=== PATIENT | female | born 1970 | race African-American/Black ===

== ENCOUNTER 2017-12-27 16:30 | Emergency (ER) | payer OTHER ==
[~2017-12-27] VITALS: Ht 157.5 cm; Wt 89.4 kg
[~2017-12-27 16:30] MED LIST: CIPROFLOXACIN500 M1 PO; FLAGYL500 MG PO; NOHOMEMEDICATIONS; NORCO 5-325 TA1 EACH PO; PHENTERMINE HCL30 MG PO
[2017-12-27] MEDS ORDERED: OMEPRAZOLE40 MG PO (16:38)
[2017-12-27] MEDS ORDERED: MULTIVITAMINS1 EAC7 PO (16:38)
[2017-12-27] MEDS ORDERED: BIOTIN10 MG PO (16:39)
[2017-12-27] MEDS ORDERED: PREDNISONE 20 M20 MG PO (17:18)
[2017-12-27] MEDS ORDERED: MORPHINE SULFAT15 M3 PO (17:18)
[2017-12-27 17:25] VITALS: BP 116/79
== END 2017-12-27 17:25 | disposition home or self-care (01) ==
LOC: ER 16:30
DX: M54.5 Low back pain (principal); G89.29 Other chronic pain; R20.0 Anesthesia of skin; R20.2 Paresthesia of skin; M79.605 Pain in left leg